=== PATIENT | male | born 1995 ===

== ENCOUNTER 2018-02-14 05:02 | Emergency (ER) | payer SELFPAY ==
[~2018-02-14] VITALS: Ht 172.7 cm; Wt 68.0 kg
--- NOTE | 2018-02-14 05:35 | ED Upper Extremity ---
General Chief Complaint: Upper Extremity Stated Complaint: LEFT HAND INJURY Nursing Triage Note: patient reports L hand pain after falling on hand when going down stairs. Nursing Sepsis Screen: No Definite Risk Source: patient Exam Limitations: no limitations History of Present Illness Date Seen by Provider: Feb 14, 2018 Time Seen by Provider: 05:30 Initial Comments Patient presents with his significant other's to the ER with a chief complaint that they're at a [employer] had a few drinks and he walked out the back door and fell onto his outstretched hands. He says his left finger now is having significant pain and will not extend fully. He has no previous history of fracture or surgery to his finger. He has feeling in his finger. Allergies and Home Medications Allergies Coded Allergies: No Known Drug Allergies (Unverified , 02/14/18) Patient Home Medication List Home Medication List Reviewed: Yes Constitutional: No chills, No diaphoresis EENTM: No ear discharge, No ear pain Respiratory: No cough, No short of breath Cardiovascular: No chest pain, No edema Gastrointestinal: No abdominal pain, No nausea Genitourinary: No discharge, No dysuria Past Arhrjkn-Mvofpb-Ndpjab Hx Patient Social History Alcohol Use: Occasionally Uses Recreational Drug Use: No Smoking Status: Current Someday Smoker Recent Foreign Travel: No Contact w/Someone Who Travel: No Recent Infectious Disease Expo: No Recent Hopitalizations: No Surgeries History of Surgeries: No Respiratory History of Respiratory Disorde: No Cardiovascular History of Cardiac Disorders: No Neurological History of Neurological Disord: No Genitourinary History of Genitourinary Disor: No Gastrointestinal History of Gastrointestinal Di: No Musculoskeletal History of Musculoskeletal Dis: No Endocrine History of Endocrine Disorders: No HEENT History of HEENT Disorders: No Cancer History of Cancer: No Psychosocial History of Psychiatric Problem: No Integumentary History of Skin or Integumenta: No Blood Transfusions History of Blood Disorders: No Physical Exam Vital Signs Vital Signs - First Documented 02/14/18 05:28 Temp 98.2 Pulse 108 Resp 18 B/P (MAP) 118/76 (90) Pulse Ox 98 Capillary Refill : Less Than 3 Seconds General Appearance: WD/WN, no apparent distress HEENT: PERRL/EOMI, pharynx normal Cardiovascular: normal peripheral pulses, regular rate, rhythm Respiratory: no respiratory distress, no accessory muscle use Wrist: Yes normal inspection, Yes non-tender, Yes no evidence of injury, Yes normal ROM Hand: Left, abrasions (cross knuckles), bone tenderness (fourth digit), limited ROM (unable to extend fourth digit beyond 90), swelling Neurologic/Tendon: normal sensation, normal motor functions, normal tendon functions, responds to pain Neurologic/Psychiatric: no motor/sensory deficits, alert, normal mood/affect, oriented x 3 Skin: normal color, warm/dry Lymphatic: no adenopathy Additional Procedures : Progress Patient elected to have lidocaine digital nerve block prior to reduction of fourth finger left hand. Using a 25-gauge 1-1/2 inch needle 2 cc were injected both sides of the fourth digit and when the patient was ascertained to be numb his finger was reduced easily. Progress/Results/Core Measures Results/Orders My Orders Orders - MARLIN DALTON Finger(S) (02/14/18 05:32) Ketorolac Injection (Toradol Injection) (02/14/18 05:45) Wrist, Left, 3 Views Or More (02/14/18 05:37) Lidocaine 1% (Xylocaine 1%) (02/14/18 06:00) Medications Given in ED Current Medications Medications Dose Ordered Sig/Billy Route Start Time Stop Time Status Last Admin Dose Admin Ketorolac Tromethamine 10 mg ONCE ONCE IVP 02/14/18 05:45 02/14/18 05:46 DC 02/14/18 05:45 10 MG Vital Signs/I&O Vital Sign - Last 12Hours 02/14/18 05:28 Temp 98.2 Pulse 108 Resp 18 B/P (MAP) 118/76 (90) Pulse Ox 98 Blood Pressure Mean: 90 Diagnostic Imaging Diagonstic Imaging: Xray Plain Films/CT/US/NM/MRI: other (left fingers and wrist) Comments No acute fracture fingers however there is dislocation of the fourth digit between the middle and proximal phalanxes. No acute fracture of wrist x-ray. NAME: RAYSHAWN KHAN [facility] REC#: [id number] PHYSICIAN: MARLIN DALTON MD CC: REFUGIO CABALLERO MD; MARLIN DALTON Page 1 of 1 RADIOLOGY REPORT VIA [facility]. [place], [place] CC: REFUGIO CABALLERO MD; MARLIN DALTON Page 1 of 1 RADIOLOGY REPORT NAME: RAYSHAWN KHAN [facility] REC#: [id number] PT STATUS: REG ER : 1995 PHYSICIAN: MARLIN DALTON MD ADMIT DATE: 02/14/18/ER Signed Date of Exam: 02/14/18 WRIST, LEFT, 3 VIEWS OR MORE Indication: Left wrist injury from a fall 3 views of the left wrist show no fracture, dislocation or other acute abnormalities. Impression: Negative left wrist Dictated by: Dictated on workstation # [email or web address] [id number] Dict: 02/14/18558 Trans: 02/14/18558 Interpreted by: REFUGIO CABALLERO MD Electronically signed by: REFUGIO CABALLERO MD 02/14/18558 [facility] [id number] PHYSICIAN: MARLIN DALTON MD CC: REFUGIO CABALLERO MD; MARLIN DALTON Page 1 of 1 RADIOLOGY REPORT VIA [place], [place] CC: REFUGIO CABALLERO MD; MARLIN DALTON Page 1 of 1 RADIOLOGY REPORT NAME: RAYSHAWN KHAN [facility] REC#: [id number] PT STATUS: REG ER : 1995 PHYSICIAN: MARLIN DALTON MD ADMIT DATE: 02/14/18/ER Signed Date of Exam: 02/14/18 FINGER(S) Indication: Left fourth finger injury 3 views of left hand show subluxation of the PIP joint of the left fourth finger. There is no fracture. Impression: Anterior subluxation of the middle phalanx at the PIP joint of the left fourth finger. Dictated by: Dictated on workstation # [email or web address] [id number] Dict: 02/14/18599 Trans: 02/14/18600 Interpreted by: REFUGIO CABALLERO MD Electronically signed by: REFUGIO CABALLERO MD 02/14/18600 Reviewed: Reviewed by Me Departure Impression Impression: Primary Impression: Dislocation, finger, interphalangeal joint Qualified Codes: S63.279A - Dislocation of unspecified interphalangeal joint of unspecified finger, initial encounter Additional Impression: Fall Qualified Codes: W19.XXXA - Unspecified fall, initial encounter Disposition: 01 HOME, SELF-CARE Condition: Improved Departure-Patient Inst. Decision time for Depature: 06:10 Referrals: NO,LOCAL PHYSICIAN (PCP/Family) Primary Care Physician Patient Instructions: Jammed Finger (DC) Add. Discharge Instructions: Apply an ice pack for 20 minutes every 2-4 hours as needed for pain or swelling. Use Tylenol 1000 mg every 8 hours and/or ibuprofen 800 mg every 8 hours as needed for pain. If you lose sensation or have increasing swelling in that digit joint then you should follow up with the primary care physician or return to the ER. All discharge instructions reviewed with patient and/or family. Voiced understanding. MARLIN DALTON Feb 14, 2018 05:35
[2018-02-14] MEDS ORDERED: KETOROLAC 30 MG/ML VIAL IVP ONE (05:45)
[2018-02-14] MEDS ORDERED: LIDOCAINE 1% INJ 50 ML (XYLOCAINE) VIAL IJ ONE (06:00)
--- NOTE | 2018-02-14 06:02 | Diagnostic Imaging Report ---
Indication: Left wrist injury from a fall 3 views of the left wrist show no fracture, dislocation or other acute abnormalities. Impression: Negative left wrist Dictated by: Dictated on workstation # [email or web address]
--- NOTE | 2018-02-14 06:04 | Diagnostic Imaging Report ---
Indication: Left fourth finger injury 3 views of left hand show subluxation of the PIP joint of the left fourth finger. There is no fracture. Impression: Anterior subluxation of the middle phalanx at the PIP joint of the left fourth finger. Dictated by: Dictated on workstation # [email or web address]
[2018-02-14 06:20] VITALS: BP 118/76
== END 2018-02-14 06:20 | disposition home or self-care (01) ==
LOC: ER 05:06
DX: S63.235A Subluxation of proximal interphalangeal joint of left ring finger, initial encounter (principal); F17.200 Nicotine dependence, unspecified, uncomplicated; W10.9XXA Fall (on) (from) unspecified stairs and steps, initial encounter
CPT/HCPCS: 73110; 73140; 96374